=== PATIENT | female | born 1970 | race Hispanic/Latino ===

== ENCOUNTER 2024-05-28 17:25 | Emergency (ER) | payer BC ==
[~2024-05-28] VITALS: Ht 167.6 cm; Wt 96.2 kg
[2024-05-28] MEDS: TRIAMCINOLONE ACETONIDE 40 MG/ML 1ML VIAL IM ONE (18:34)
[2024-05-28] MEDS: ORPHENADRINE 60MG/2ML IM ONE (18:34)
[2024-05-28] MEDS ORDERED: CYCL10TA16 PO (19:25)
[2024-05-28] MEDS ORDERED: LIDO1ADH82 TP (19:25)
[2024-05-28] MEDS: ketOROlac 60 MG VIAL (30MG/ML) IM ONE (19:29)
[2024-05-28] MEDS: LIDOCAINE 4% ADH..PATCH TP ONE (19:30)
[2024-05-28 20:15] VITALS: BP 116/51; PULSE 57; RESP 18; TEMP 98.4; O2SAT 98
== END 2024-05-28 20:26 | disposition home or self-care (01) ==
LOC: EDH 17:25
DX: S39.012A Strain of muscle, fascia and tendon of lower back, initial encounter (principal); M47.816 Spondylosis without myelopathy or radiculopathy, lumbar region; I10 Essential (primary) hypertension; Z79.899 Other long term (current) drug therapy; Z98.890 Other specified postprocedural states; X50.9XXA Other and unspecified overexertion or strenuous movements or postures, initial encounter; Y93.89 Activity, other specified; Y92.89 Other specified places as the place of occurrence of the external cause; Y99.8 Other external cause status
CPT/HCPCS: 99284; 72100; 96372 ×3; J3301; J1885; J2360

== ENCOUNTER 2024-06-10 12:26 | Emergency (ER) | payer BC ==
[~2024-06-10] VITALS: Ht 165.1 cm; Wt 95.3 kg
[~2024-06-10 12:26] MED LIST: CYCL10TA16 PO; LIDO1ADH82 TP
--- NOTE | 2024-06-10 12:58 | ERN ---
ED Note History of Present Illness Stated Complaint: BACK PAIN Chief Complaint: Back Pain-No Injury Dictation: 54-year-old female presents to the ED for evaluation of back pain onset 3 weeks ago worsening today. Patient denies any fever, dysuria or any other associated symptoms at this time. 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 PCP- Dr. Nix. Allergies: Coded Allergies: No Known Allergies (Unverified Allergy, Unknown, 05/28/24) Home Meds Active Scripts Lidocaine (Lidocaine) 4 % Adh..patch, 1 PATCH TP DAILY for 10 Days, #10 PATCH 0 Refills Prov:DARIO MANNING MD 05/28/24 Cyclobenzaprine HCl (Flexeril) 10 Mg Tab, 10 MG PO TID for muscle sstiffness, #14 TAB 0 Refills Prov:DARIO MANNING MD 05/28/24 Past Medical History Past Medical History: Arthritis, Hypertension Additional Past Medical Hx: CHRONIC BACK PAIN Surgical History: None History: Not Applicable Review of System Dictation Constitutional: Negative for fever,chills, and weight loss Eyes: Negative for injury, pain,redness, and discharge ENT: Negative for injury,pain or swelling Cardiovascular: Negative for chest pain, palpitations, and edema Respiratory: Negative for shortness of breath, cough, and wheezing, Abdomen/GI: Negative for abdominal pain, nausea, vomiting, diarrhea, and constipation Back: Positive for back pain : Negative for injury, bleeding and discharge MS/Extremity: Negative for injury and deformity Skin: Negative for rash, and discoloration Neuro: Negative for headache, weakness, numbness, tingling, and seizure Psych: Negative for suicide ideation, homicidal ideation, and hallucinations Initial Vital Sign VS Vital Signs Date Time Temp Pulse Resp B/P (MAP) Pulse Ox O2 Delivery O2 Flow Rate FiO2 06/10/24 12:27 98.2 98 18 144/76 99 Room Air Physical Exam Dictation General: awake, alert, NAD Head/Face: Normocephalic, atraumatic Eyes: PERRL, EOMI, vision at baseline ENT: oral cavity clear, TMs clear, no signs of infection Neck: Trachea midline, supple, no nuchal rigidity Cardiovascular: RRR, normal S1/S2, No MRGs, no JVD Respiratory: CTAB, no respiratory distress, No rales or wheezes Abdomen: Soft, non-tender, non-distended, normal bowel sounds, no guarding or rebound. Back: lumbar tenderness Skin: Warm, dry, normal turgor, no rash MS/Extremity: Pulses equal, no cyanosis, neurovascular intact, FROM Neuro: COAx4, GCS 15, strength 5/5, CN 2-12 intact, normal cerebellar exam, normal gait, Psych: Normal behavior, mood, and affect normal ED Course ED Course Vital Signs Date Time Temp Pulse Resp B/P (MAP) Pulse Ox O2 Delivery O2 Flow Rate FiO2 06/10/24 12:27 98.2 98 18 144/76 99 Room Air Medical Decision Making MDM MDM: Differential diagnosis: Lumbar strain , back pain Previous outside records reviewed: Old ER visits. Need for hospitalization: Patient does not meet criteria for hospitalization. Need for emergency major/minor surgery: No Patient's prior external medical records from other ER visits were reviewed by me as indicated. Prior testing and results from previous visits were reviewed. Prior tests were taken into account with medical decision making and resource utilization, independent historian/historians were used to obtain complete medical history. I independently interpreted the test that were performed, results were reviewed by me and considered findings on radiology if ordered. Medical management and examination interpretation discussions were had by me with other qualified healthcare professionals as indicated for the patient's care. DX & DISP Departure Condition: Stable Referrals: DEB SHAIKH MD (PCP) I have reviewed, & agreed with my scribe's, documentation. (Entered by Bailee Ashton, acting as a scribe for Dr. Blunt) I have reviewed the case I personally scribed for MILA BLUNT MD ([email or web address]) on 06/10/24 at 12:58. Electronically submitted by Bailee Ashton ([email or web address]). MILA BLUNT MD Jun 10, 2024 12:58
[2024-06-10] MEDS: diazePAM 5 MG/ML 2 ML SYG IVP ONE (13:10)
[2024-06-10] MEDS: ketOROlac 15MG/ML VIAL (15MG/ML) IV ONE (13:11)
[2024-06-10] MEDS: 0.9%NACL 1000ML 1,000 ML IV ONE (13:11)
[2024-06-10 13:35] LABS: BASOPHILS # (AUTO) 0.01 K/uL (0.00-0.20); BASOPHILS % (AUTO) 0.1 % (0.0-5.0); EOSINOPHILS # (AUTO) 0.04 K/uL (0.00-0.70); EOSINOPHILS % (AUTO) 0.6 % (0.0-8.0); HEMATOCRIT 32.9 % (36-48); IMMATURE GRANULOCYTE ABSOLUTE 0.06 K/uL (0-1); LYMPHOCYTES # (AUTO) 0.7 K/uL (1.0-4.8); MEAN CORPUSCULAR HEMOGLOBIN 30.5 pg (27.0-33.0); MEAN CORPUSCULAR HGB CONC 32.5 g/dL (32.0-36.0); MEAN CORPUSCULAR VOLUME 93.7 fL (79-99); MONOCYTES # (AUTO) 0.3 K/uL (0.1-1.0); MONOCYTES % (AUTO) 4.6 % (3.0-13.0); NEUTROPHILS # (AUTO) 5.6 K/uL (1.8-7.7); NEUTROPHILS % (AUTO) 82.8 % (40.0-77.0); PLATELET COUNT (AUTO) 141 K/uL (130-400); RED BLOOD CELL COUNT(AUTO) 3.51 MIL/uL (4.00-5.50); RED CELL DISTRIBUTION WIDTH 13.2 % (11.0-15.5); WHITE BLOOD COUNT (AUTO) 6.7 K/uL (4.8-10.8)
[2024-06-10 13:47] LABS: CREATININE 0.7 mg/dL (0.5-1.0); POTASSIUM 4.3 mmol/L (3.5-5.1)
[2024-06-10 13:52] LABS: ALBUMIN 1.7 g/dL (3.5-5.0); BILIRUBIN,DIRECT 0.8 mg/dL (0.0-0.3); BILIRUBIN,TOTAL 1.1 mg/dL (0.2-1.0); TOTAL PROTEIN, SERUM 6.4 g/dL (6.0-8.3)
--- NOTE | 2024-06-10 14:09 | HMCIMG ---
CT ABD/PEL WO CON RENAL/APPY INDICATION: low back pain TECHNIQUE: CT ABD/PEL WO CON RENAL/APPY. Oral contrast was not given. Coronal and sagittal reformats were performed. CT was performed with one or more of the following dose reduction techniques: Automated exposure control, adjustment of the mA and/or kV according to the patient's size, or use of the iterative reconstruction technique. Comparison: None. FINDINGS: The noncontrast nature this study limits evaluation of abdominal viscera. Mild atelectatic changes are seen in the lung bases. Heterogeneous liver suggests hepatic disease. Gallstone is seen within mildly distended gallbladder. Correlate clinically. Enlarged spleen measuring 14.3 cm. No acute findings in the pancreas and adrenal glands. No hydronephrosis. The urinary bladder is partially collapsed. Reproductive organs are grossly within normal limits for patient's age. Prominent fecal material is seen in the colon suggestive of constipation. No bowel obstruction is seen. The appendix was not clearly visualized limiting evaluation. Correlate clinically. Atherosclerotic changes of the aorta with calcified plaques. Degenerative changes of the spine are seen. Severe compression fracture of L1, age indeterminate. IMPRESSION: 1. Prominent fecal material is seen in the colon suggestive of constipation. No bowel obstruction is seen. The appendix was not clearly visualized limiting evaluation. Correlate clinically. 2. Mild distended gallbladder with gallstones. Correlate clinically. 3. Severe compression fracture of L1, age indeterminate. Correlate clinically. 4. Additional findings as described above. .
[2024-06-10 16:01] LABS: BILIRUBIN,URINE NEGATIVE (NEGATIVE); COLOR,URINE YELLOW (YELLOW); GLUCOSE, URINE (UA) NEGATIVE (NEGATIVE); KETONES,URINE NEGATIVE (NEGATIVE); LEUKOCYTE ESTERASE ,URINE 75 Leu/uL (NEGATIVE); NITRATE,URINE NEGATIVE (NEGATIVE); OCCULT BLOOD,URINE MODERATE (NEGATIVE); PH,URINE 6.5 (5.0-8.0); PROTEIN,URINE 20 mg/dL (NEGATIVE); UROBILINOGEN,URINE 12 mg/dL (0.2-1.0)
[2024-06-10 16:02] LABS: ADD UA MICROSCOPIC YES; APPEARANCE,URINE HAZY (CLEAR)
[2024-06-10 16:05] LABS: BACTERIA,URINE MANY /HPF (None Seen); SQUAMOUS EPITHELIAL CELL,UR RARE /HPF (0-2)
[2024-06-10] MEDS: hydroMORPHone 1 MG INJ IVP ONE ×2 (17:08→21:48)
[2024-06-10 22:59] VITALS: BP 133/67; PULSE 89; RESP 16; TEMP 98.4; O2SAT 97
--- NOTE | 2024-06-11 10:02 | EKG ---
[facility] Test Date: 2024-06-10 Test Time: 13:12:19 Pat Name: DARIO TROY Department: ED Room: Gender: Female [employer] Supervisor: SURI : 1970 Requested By: MILA BLUNT Order Number: [id number] Reading MD: Measurements Intervals [place] Rate: 89 P: 47 RI: 145 QRS: 44 QRSD: 99 T: 37 QT: 355 QTc: 433 Interpretive Statements Sinus rhythm Probable left atrial enlargement Low voltage, precordial leads No previous ECG available for comparison Please click the below link to view image of tracing.
== END 2024-06-10 23:02 | disposition short-term general hospital (02) ==
LOC: EDH 12:26
DX: K80.20 Calculus of gallbladder without cholecystitis without obstruction (principal); G89.29 Other chronic pain; M54.89 Other dorsalgia; I10 Essential (primary) hypertension; K59.00 Constipation, unspecified; M19.90 Unspecified osteoarthritis, unspecified site; Z79.899 Other long term (current) drug therapy
CPT/HCPCS: 99285; 74176; 96374; 96375; 96361; 80076; 84484; 80048; 85025; 87086 ×2; 87186; 81001; 36415; 96376; 93005; J1171 ×2; J7030; J3360; J1885